=== PATIENT | female | born 1990 | race African-American/Black ===

== ENCOUNTER 2019-04-08 19:48 | Emergency (ER) | payer OTHER ==
[~2019-04-08] VITALS: Ht 160 cm; Wt 53.5 kg
[~2019-04-08 19:48] MED LIST: AZITHROMYCIN250 MG PO; DECON-A LIQUID118 ML PO; FOLIC ACID0.4 MG
== END 2019-04-08 22:55 | disposition home or self-care (01) ==
LOC: ER 19:48
DX: G43.909 Migraine, unspecified, not intractable, without status migrainosus (principal); R42 Dizziness and giddiness

== ENCOUNTER 2024-06-10 18:42 | Emergency (ER) | payer OTHER ==
[~2024-06-10] VITALS: Ht 160 cm; Wt 62.6 kg
[2024-06-10] MEDS ORDERED: ORPHENADRINE CITRATE 30 MG/ML AMPUL IM ONE (20:00)
[2024-06-10] MEDS ORDERED: DEXAMETHASONE SODIUM PHOSPHATE 4 MG/ML VIAL IM ONE (20:00)
[2024-06-10] MEDS ORDERED: KETOROLAC TROMETHAMINE 60 MG VIAL IM ONE ×2 (20:00→20:17)
[2024-06-10] MEDS ORDERED: ORPHENADRINE CITRATE 30 MG/ML AMPUL ONE (20:17)
[2024-06-10] MEDS ORDERED: DEXAMETHASONE SODIUM PHOSPHATE 4 MG/ML VIAL ONE (20:17)
[2024-06-10] MEDS ORDERED: NORFLEX100MG PO (20:23)
[2024-06-10] MEDS ORDERED: DICLOFENAC SODI50 MG PO (20:23)
[2024-06-10] MEDS ORDERED: MEDROLPACK PO (20:23)
== END 2024-06-10 20:43 ==
LOC: ER 18:43
DX: M54.2 Cervicalgia (principal); G89.29 Other chronic pain; Z88.0 Allergy status to penicillin; Z88.8 Allergy status to other drugs, medicaments and biological substances

== ENCOUNTER 2024-08-07 10:44 | Emergency (ER) | payer OTHER ==
[~2024-08-07] VITALS: Ht 160 cm; Wt 63.0 kg
[~2024-08-07 10:44] MED LIST changes: +DICLOFENAC SODI50 MG PO; +MEDROLPACK PO; +NORFLEX100MG PO
[2024-08-07 11:03] VITALS: BP 108/77; O2SAT 100
[2024-08-07] MEDS ORDERED: ORPHENADRINE CITRATE 30 MG/ML AMPUL IM STA (12:12)
[2024-08-07] MEDS ORDERED: KETOROLAC TROMETHAMINE 30 MG VIAL IM STA (12:12)
[2024-08-07] MEDS ORDERED: DEXAMETHASONE SODIUM PHOSPHATE 4 MG/ML VIAL IM STA (12:14)
[2024-08-07] MEDS ORDERED: KETOROLAC TROMETHAMINE 30 MG VIAL ONE (12:24)
[2024-08-07] MEDS ORDERED: ORPHENADRINE CITRATE 30 MG/ML AMPUL ONE (12:25)
[2024-08-07] MEDS ORDERED: DEXAMETHASONE SODIUM PHOSPHATE 4 MG/ML VIAL ONE (12:25)
== END 2024-08-07 12:36 | disposition home or self-care (01) ==
LOC: ER 10:45
DX: M54.2 Cervicalgia (principal); Z88.0 Allergy status to penicillin; Z88.8 Allergy status to other drugs, medicaments and biological substances

== ENCOUNTER 2024-08-15 12:18 | Emergency (ER) | payer OTHER ==
[~2024-08-15] VITALS: Ht 160 cm; Wt 65.8 kg
[2024-08-15 13:11] VITALS: BP 124/76; O2SAT 100
[2024-08-15] MEDS ORDERED: ORPHENADRINE CITRATE 30 MG/ML AMPUL IM STA (14:22)
[2024-08-15] MEDS ORDERED: KETOROLAC TROMETHAMINE 30 MG VIAL IM STA (14:23)
== END 2024-08-15 16:15 | disposition home or self-care (01) ==
LOC: ER 12:19
DX: M54.9 Dorsalgia, unspecified (principal)

== ENCOUNTER 2024-10-10 16:18 | Emergency (ER) | payer OTHER ==
[~2024-10-10] VITALS: Ht 160 cm; Wt 67.1 kg
[2024-10-10] MEDS ORDERED: ORPHENADRINE CITRATE 30 MG/ML AMPUL IM ONE (17:00)
[2024-10-10] MEDS ORDERED: TRIAMCINOLONE ACETONIDE 40 MG/ML VIAL IM ONE (17:00)
[2024-10-10] MEDS ORDERED: KETOROLAC TROMETHAMINE 60 MG VIAL IM ONE (17:00)
[2024-10-10] MEDS ORDERED: DICLOFENAC SODI75 MG PO (17:01)
[2024-10-10] MEDS ORDERED: CYCLOBENZAPRINE10 MG PO (17:01)
== END 2024-10-10 17:22 | disposition home or self-care (01) ==
LOC: ER 16:20
DX: M54.2 Cervicalgia (principal); Z88.0 Allergy status to penicillin; Z88.1 Allergy status to other antibiotic agents

== ENCOUNTER 2025-07-17 09:15 | Emergency (ER) | payer OTHER ==
[~2025-07-17] VITALS: Ht 160 cm; Wt 68.0 kg
[~2025-07-17 09:15] MED LIST changes: +CYCLOBENZAPRINE10 MG PO; +DICLOFENAC SODI75 MG PO
[2025-07-17 10:23] LABS: BASO % 0.5 % (0.1-1.2); EOS # 0.31 (0.04-0.54); EOS % 4.0 % (0.7-7.0); LYMPH # 1.81 (1.18-3.74); LYMPH % 23.4 % (19.3-53.1); MEAN PLATELET VOLUME 11.00 fl (9.4-12.4); MONO # 0.53 (0.24-0.82); MONO % 6.8 % (4.7-12.5); NEUT # 5.03 (1.56-6.13); NEUT % 64.9 % (34.0-71.1); RED CELL DISTRIBUTION WIDTH 12.2 % (11.6-14.4)
[2025-07-17 10:58] LABS: ALT/SGPT 14.0 U/L (12-78); AST/SGOT 14.0 U/L (15-37); BILIRUBIN TOTAL 0.25 mg/dL (0.3-1.2); BUN CREA RATIO 12.0 (7.0-25.0); CREATININE SERUM 0.68 mg/dL (0.55-1.02); GFR 97.9; GLOBULINA 3.4 G/DL (2.4-3.5); GLUCOSE FASTING 93.0 mg/dL (65-100); OSMOLALITY SERUM 281.0 MOSM/KG (275-295)
[2025-07-17 14:43] LABS: URINE APPEARANCE Clear; URINE BILIRRUBIN Negative (NEGATIVE); URINE BLOOD Negative; URINE COLOR Yellow; URINE GLUCOSE Negative (NEGATIVE); URINE KETONE Trace (NEGATIVE); URINE LEUKOCYTE Negative; URINE NITRATE Negative; URINE PROTEIN Negative (NEGATIVE); URINE UROBILINOGEN 0.2 E.U./dl
[2025-07-17 14:48] LABS: URINE BACTERIA 122.3 uL (0.0-1933); URINE RBC 8.6 uL (0.0-20.8)
[2025-07-17 14:59] LABS: URINE CAST 0.00 uL (0.0-1.40); URINE EPITHELIAL CELLS 0.4 uL (0.0-38.8); URINE WBC 1.2 uL (0.0-23.2)
[2025-07-17] MEDS ORDERED: IBUPROFEN800 MG PO (16:06)
[2025-07-17] MEDS ORDERED: KETOROLAC TROMETHAMINE 60 MG VIAL IM ONE ×2 (16:10→16:15)
== END 2025-07-17 16:17 | disposition home or self-care (01) ==
LOC: ER 09:28
PROVIDERS: Preventive Medicine Public Health & General Preventive Medicine
DX: R10.2 Pelvic and perineal pain (principal); N83.291 Other ovarian cyst, right side; E16.2 Hypoglycemia, unspecified; Z88.0 Allergy status to penicillin; Z88.8 Allergy status to other drugs, medicaments and biological substances

== ENCOUNTER 2025-11-18 10:12 | Emergency (ER) | payer OTHER ==
[~2025-11-18] VITALS: Ht 160 cm; Wt 68.0 kg
[~2025-11-18 10:12] MED LIST changes: +IBUPROFEN800 MG PO
[2025-11-18] MEDS ORDERED: KETOROLAC TROMETHAMINE 30 MG VIAL IM STA (10:44)
[2025-11-18] MEDS ORDERED: DEXAMETHASONE SODIUM PHOSPHATE 4 MG/ML VIAL IM STA (10:44)
[2025-11-18] MEDS ORDERED: ORPHENADRINE CITRATE 30 MG/ML AMPUL IM STA (10:44)
== END 2025-11-18 12:25 | disposition home or self-care (01) ==
LOC: ER 10:13
DX: M54.59 Other low back pain (principal); Z88.0 Allergy status to penicillin; Z88.8 Allergy status to other drugs, medicaments and biological substances